=== PATIENT | female | born 1990 | race African-American/Black ===

== ENCOUNTER 2017-03-20 16:19 | Emergency (ER) | payer SELFPAY ==
[~2017-03-20] VITALS: Ht 157.5 cm; Wt 100.0 kg
[~2017-03-20 16:19] MED LIST: PREN1TAB78 PO
[2017-03-20] MEDS ORDERED: IBUPROFEN 800 MG TABLET PO ONE (17:30)
[2017-03-20 17:45] VITALS: BP 128/71
== END 2017-03-20 17:51 | disposition home or self-care (01) ==
LOC: EMS 16:20
DX: M25.512 Pain in left shoulder (principal)
CPT/HCPCS: 99282